=== PATIENT | female | born 1975 | race American Indian/Alaskan Native ===

== ENCOUNTER 2016-06-08 10:08 | Outpatient (CLI) | payer OTHER ==
[2016-06-08 10:55] LABS: Blood Urea Nitrogen 10 mg/dL (7-17)
--- NOTE | 2016-06-08 14:47 | Cat Scan Report ---
CT PELVIS WITH AND WITHOUT CONTRAST: HISTORY: Postoperative hematoma, pain. FINDINGS: No comparison. Hysterectomy changes are suspected. I believe I see the ovaries. The right ovary is normal size. The left ovary is mildly enlarged measuring up to 4.2 x 3.4 cm. There is no obvious cyst or complex mass. No pelvic fluid collection. The vaginal cuff and bladder are within normal limits. The visualized bowel loops and appendix are normal. There is no evidence for pelvic ascites, mass or hematoma. The vascular structures are patent. IMPRESSION: No postoperative hematoma is appreciated. Hysterectomy changes. Mild enlargement of the left ovary without certain etiology. No complex ovarian mass.
== END 2016-06-08 10:09 | disposition home or self-care (01) ==
LOC: CT 10:08
PROVIDERS: ATTEND Obstetrics & Gynecology
DX: N99.840 Postprocedural hematoma of a genitourinary system organ or structure following a genitourinary system procedure (principal); Q50.39 Other congenital malformation of ovary; Z90.710 Acquired absence of both cervix and uterus
CPT/HCPCS: 36415; 72194; 82565; 84520; Q9967

== ENCOUNTER → 2017-09-14 | Outpatient (CLI) | payer OTHER | LOC: SLR 11:00 | PROVIDERS: ATTEND Specialist | DX: G47.30 Sleep apnea, unspecified (principal) | CPT/HCPCS: 95810 ==

== ENCOUNTER 2017-09-28 11:00 | Outpatient (CLI) | payer OTHER | END 2017-09-28 11:01 | disposition home or self-care (01) | LOC: SLR 11:00 | PROVIDERS: ATTEND Specialist | DX: G47.33 Obstructive sleep apnea (adult) (pediatric) (principal) | CPT/HCPCS: 95811 ==